=== PATIENT | male | born 1955 | race Caucasian/White ===

== ENCOUNTER → 2017-02-01 | Outpatient (CLI) | payer MEDICARE | LOC: US 01-25 15:30 | DX: N20.0 Calculus of kidney (principal) | CPT/HCPCS: 74000 ==

== ENCOUNTER 2020-11-10 21:10 | Inpatient (IN) | payer MEDICARE, OTHER ==
[~2020-11-10] VITALS: Ht 185.4 cm; Wt 79.4 kg
[~2020-11-10 21:10] MED LIST: AMARYL 2MG TABLE2 MG PO; CARDIZEM 60MG T60 MG PO; FOLIC ACID 1 MG1 MG PO; GLUCOPHAGE500 MG PO; LANOXIN EL0.05 MG/ML PO; LIORESAL TAB 1010 MG PO; LIPITOR TAB 2020 MG PO; LORTAB 5-325 M1 EACH PO; NEURONTIN 300300 MG PO; NORCO 7.5-3251 EACH PO; ODOR FREE GARL100 MG PO; PLAVIX 75 MG TA75 MG PO; VITAMIN E1000 UNI1 PO; ZOLOFT50 MG PO
[2020-11-10 21:48] LABS: HEMOGLOBIN 12.4 gm/dl (14.0-17.5); RED BLOOD COUNT 3.99 M/UL (4.20-5.50); WHITE BLOOD COUNT 12.7 K/UL (4.5-11.0)
[2020-11-10] MEDS ORDERED: ELIQUIS2.5 MG PO (23:47)
[2020-11-10] MEDS ORDERED: TOPROL XL25 MG PO (23:48)
[2020-11-10] MEDS ORDERED: HYDROCODONE-AC1 EAC1 PO (23:49)
[2020-11-10] MEDS ORDERED: KLONOPIN TAB 00.5 MG PO (23:52)
[2020-11-11] MEDS ORDERED: CLEOCIN HCL150 MG PO (00:08)
[2020-11-11 05:08] LABS: HEMOGLOBIN 11.6 gm/dl (14.0-17.5); RED BLOOD COUNT 3.65 M/UL (4.20-5.50); WHITE BLOOD COUNT 13.7 K/UL (4.5-11.0)
[2020-11-12 02:49] LABS: HEMOGLOBIN 12.7 gm/dl (14.0-17.5)
[2020-11-12 02:52] LABS: RED BLOOD COUNT 4.02 M/UL (4.20-5.50); WHITE BLOOD COUNT 9.6 K/UL (4.5-11.0)
--- NOTE | 2020-11-12 09:58 | NUR ---
NOTIFIED DR. JARAMILLO OF CRITICAL K RESULTS.
--- NOTE | 2020-11-12 17:07 | NUR ---
ASSISTED DR. BLACK WITH BEDSIDE REMOVAL OF DRAIN TO ORAL CAVITY. PATIENT TOLERATED WELL. NO BLOOD LOSS NOTED.
--- NOTE | 2020-11-12 17:14 | NUR ---
NOTIFIED DR. JARAMILLO OF NOTIFICATION FROM TELEMETRY OF HEART RATE IN 150'S WITH SMALL BURST OF SVT.
[2020-11-13 06:42] LABS: HEMOGLOBIN 11.3 gm/dl (14.0-17.5); RED BLOOD COUNT 3.71 M/UL (4.20-5.50); WHITE BLOOD COUNT 7.3 K/UL (4.5-11.0)
[2020-11-14] MEDS ORDERED: HYDROCODON-ACE1 EAC4 PO (15:43)
== END 2020-11-14 18:34 | disposition home or self-care (01) | DRG 907 ==
LOC: ER1 21:10 → MED SURG 4 22:48 → CDU 22:48 → MED SURG 4 11-11 02:30
PROVIDERS: Dentist Oral and Maxillofacial Surgery; Emergency Medicine; Internal Medicine; ADMIT Family Medicine
PROC: B24BZZZ Ultrasonography of Heart with Aorta (ICD-10-PCS; 2020-11-11)
PROC: 0W930ZZ Drainage of Oral Cavity and Throat, Open Approach (ICD-10-PCS; 2020-11-11)
PROC: 0CDWXZ1 Extraction of Upper Tooth, Multiple, External Approach (ICD-10-PCS; principal; 2020-11-11 18:47)
DX: T85.79XA Infection and inflammatory reaction due to other internal prosthetic devices, implants and grafts, initial encounter (principal); A41.9 Sepsis, unspecified organism; G93.41 Metabolic encephalopathy; N17.9 Acute kidney failure, unspecified; L03.211 Cellulitis of face; K04.7 Periapical abscess without sinus; K02.9 Dental caries, unspecified; R60.9 Edema, unspecified; I25.10 Atherosclerotic heart disease of native coronary artery without angina pectoris; E11.51 Type 2 diabetes mellitus with diabetic peripheral angiopathy without gangrene; E11.42 Type 2 diabetes mellitus with diabetic polyneuropathy; J44.9 Chronic obstructive pulmonary disease, unspecified; F17.210 Nicotine dependence, cigarettes, uncomplicated; Z20.822 Contact with and (suspected) exposure to COVID-19; N20.0 Calculus of kidney; E11.22 Type 2 diabetes mellitus with diabetic chronic kidney disease; I12.9 Hypertensive chronic kidney disease with stage 1 through stage 4 chronic kidney disease, or unspecified chronic kidney disease; N18.30 Chronic kidney disease, stage 3 unspecified; E87.5 Hyperkalemia; D72.829 Elevated white blood cell count, unspecified; I48.0 Paroxysmal atrial fibrillation; J62.8 Pneumoconiosis due to other dust containing silica; G47.33 Obstructive sleep apnea (adult) (pediatric); E55.9 Vitamin D deficiency, unspecified; M54.16 Radiculopathy, lumbar region; D64.9 Anemia, unspecified; I34.0 Nonrheumatic mitral (valve) insufficiency; K05.5 Other periodontal diseases; Z88.0 Allergy status to penicillin; Z95.1 Presence of aortocoronary bypass graft; Z86.718 Personal history of other venous thrombosis and embolism; Z79.4 Long term (current) use of insulin; Z85.51 Personal history of malignant neoplasm of bladder; Z79.01 Long term (current) use of anticoagulants; Z98.890 Other specified postprocedural states; Z83.3 Family history of diabetes mellitus; Z95.5 Presence of coronary angioplasty implant and graft; Z86.73 Personal history of transient ischemic attack (TIA), and cerebral infarction without residual deficits; Z90.49 Acquired absence of other specified parts of digestive tract
CPT/HCPCS: ECHO; 0240U; 36415; 70486; 71045; 80048; 80053; 82550; 82553; 82962; 83605; 83690; 83874; 84132; 84484; 85025; 85027; 86140; 87040; 87070; 87205; 93005; 93306; 96365; 99285; G0378; J0670; J1100; J1170; J2001; J2405; J2704; J3010; J7120

== ENCOUNTER → 2021-05-22 | Outpatient (CLI) | payer MEDICARE, OTHER ==
[~2021-05-22] MED LIST changes: +CLEOCIN HCL150 MG PO; +ELIQUIS2.5 MG PO; +HYDROCODON-ACE1 EAC4 PO; +HYDROCODONE-AC1 EAC1 PO; +KLONOPIN TAB 00.5 MG PO; +TOPROL XL25 MG PO
== END ==
LOC: SLEEP 10:31
DX: G47.33 Obstructive sleep apnea (adult) (pediatric) (principal); I63.9 Cerebral infarction, unspecified
CPT/HCPCS: 95810

== ENCOUNTER → 2021-09-05 | Outpatient (CLI) | payer MEDICARE | LOC: KOH-I 15:02 | DX: F17.210 Nicotine dependence, cigarettes, uncomplicated (principal) | CPT/HCPCS: 71271 ==

== ENCOUNTER → 2021-10-06 | Outpatient (CLI) | payer MEDICARE ==
[~2021-10-06] VITALS: Ht 185.4 cm; Wt 86.6 kg
== END ==
LOC: EROP 11:35
DX: U07.1 COVID-19 (principal); Z23 Encounter for immunization; J98.9 Respiratory disorder, unspecified; I99.9 Unspecified disorder of circulatory system; I12.9 Hypertensive chronic kidney disease with stage 1 through stage 4 chronic kidney disease, or unspecified chronic kidney disease; E11.22 Type 2 diabetes mellitus with diabetic chronic kidney disease; N18.9 Chronic kidney disease, unspecified
CPT/HCPCS: M0247; Q0247

== ENCOUNTER → 2021-10-25 | Outpatient (CLI) | payer MEDICARE | LOC: KOH-I 15:00 | DX: M79.661 Pain in right lower leg (principal); R60.9 Edema, unspecified; R10.9 Unspecified abdominal pain; R31.9 Hematuria, unspecified; Z87.442 Personal history of urinary calculi | CPT/HCPCS: 74176; 93971 ==

== ENCOUNTER → 2021-11-01 | Outpatient (CLI) | payer MEDICARE | LOC: CT 14:35 | PROVIDERS: Nurse Practitioner Family | DX: R91.1 Solitary pulmonary nodule (principal); I51.7 Cardiomegaly; R91.8 Other nonspecific abnormal finding of lung field | CPT/HCPCS: 36415; 71250; 80048 ==

== ENCOUNTER 2021-12-25 21:50 | Emergency (ER) | payer MEDICARE ==
[2021-12-25 23:12] LABS: HEMOGLOBIN 10.7 gm/dl (14.0-17.5); RED BLOOD COUNT 3.5 M/UL (4.20-5.50)
== END 2021-12-26 06:53 | disposition home or self-care (01) ==
LOC: ER1 21:50
PROVIDERS: Family Medicine
DX: I12.9 Hypertensive chronic kidney disease with stage 1 through stage 4 chronic kidney disease, or unspecified chronic kidney disease (principal); E11.65 Type 2 diabetes mellitus with hyperglycemia; N17.9 Acute kidney failure, unspecified; N18.9 Chronic kidney disease, unspecified; E11.22 Type 2 diabetes mellitus with diabetic chronic kidney disease; E11.40 Type 2 diabetes mellitus with diabetic neuropathy, unspecified; E86.0 Dehydration; E87.5 Hyperkalemia; F17.200 Nicotine dependence, unspecified, uncomplicated; Z79.84 Long term (current) use of oral hypoglycemic drugs; Z87.442 Personal history of urinary calculi; Z86.73 Personal history of transient ischemic attack (TIA), and cerebral infarction without residual deficits; Z88.0 Allergy status to penicillin; Z79.02 Long term (current) use of antithrombotics/antiplatelets; Z79.01 Long term (current) use of anticoagulants
CPT/HCPCS: 71045; 80048; 80053; 81001; 82550; 82553; 82962; 84484; 85025; 87086; 93005; 96374; 96375; 96376; 99284